=== PATIENT | female | born 1960 | race African-American/Black ===

== ENCOUNTER → 2019-09-25 15:39 | Outpatient (CLI) | payer OTHER, SELFPAY ==
--- NOTE | ~2019-09-25 | XR_ITS ---
XR_CERV2-3V_CR DATE: 09/25/2019 16:01 INDICATION: Neck pain TECHNIQUE: AP, open mouth, odontoid, lateral views COMPARISON: None FINDINGS: There is reversal of the cervical spine. C1 and C2 are normally aligned and the odontoid process is intact. No fracture or dislocation or loc ked facet. No prevertebral soft tissue swelling. There is moderate to moderately severe degenerative disc disease at C3-4 and C4-5. There is anterior fusion at C5-6. There is severe degenerative disc disease at C6-7. There is uncovertebral joint spurring at C3-4, C4-5, C5-6 and C6-7. IMPRESSION: Reversal of cervical curvature Anterior fusion at C5-6 Multi-level degenerative disc disease Reviewed, dictated and finalized at Location [facility]. Reviewed, dictated and finalized at location A.
== END ==
DX: M54.9 Dorsalgia, unspecified (principal); Z98.1 Arthrodesis status; M50.30 Other cervical disc degeneration, unspecified cervical region
CPT/HCPCS: 72040

== ENCOUNTER → 2020-01-25 08:01 | Outpatient (CLI) | payer OTHER, SELFPAY ==
--- NOTE | ~2020-01-25 | US_ITS ---
EXAMINATION: US abdomen complete DATE: 01/25/2020 09:45 INDICATION: Generalized abdominal pain and bloating TECHNIQUE: Multiple grayscale and Doppler ultrasound images of the abdomen were obtained. COMPARISON: CT, 12/08/2018 FINDINGS: The head and body of the pancreas are normal. The pancreatic tail is obscured by bowel gas. A 6 mm cyst is noted in the left hepatic lobe. The liver is otherwise normal with normal echogenicit y and echotexture. No surface nodularity. Normal hepatopetal flow in the main portal vein. The gallbl adder is normal with no abnormal wall thickening, pericholecystic fluid or stones. The normal common bile duct measures 4 mm. There was no sonographic Degroot sign. The visualized portions of the aorta a nd inferior vena cava are normal. The right kidney measures 9.3 x 3.7 x 4.3 cm. The left kidney measures 9.8 x 5.3 x 4.9 cm. The kidney s demonstrate normal parenchymal echogenicity. There is no hydronephrosis. The spleen is normal in ap pearance and measures 7.7 cm. IMPRESSION: 1. No sonographic correlate for the patient's symptoms. Reviewed, dictated and finalized at location A. GN LEAD
== END ==
DX: R10.9 Unspecified abdominal pain (principal)
CPT/HCPCS: 76700

== ENCOUNTER → 2020-09-10 13:26 | Outpatient (CLI) | payer OTHER, SELFPAY ==
--- NOTE | ~2020-09-10 | XR_ITS ---
EXAMINATION:XR cervical spine 4-5V DATE: 09/10/2020 13:54 INDICATION: Neck pain TECHNIQUE: AP, lateral, lateral swimmers and odontoid views of the cervical spine are provided. COMPARISON: 09/25/2019 FINDINGS: Alignment is normal. The odontoid is intact. No fracture is identified. There is anterior f usion at C5-6. The vertebral body heights are maintained. There is unchanged severe loss of intervert ebral disc space height at C3-4, C4-5, and C6-7. Small degenerative osteophytes project from the ante rior endplates of multiple vertebral bodies. There is severe multilevel facet and uncovertebral joint osteoarthritis. Prevertebral soft tissues are normal. IMPRESSION: 1. Severe cervical spondylosis without acute findings or significant interval change. Reviewed, dictated and finalized at location A. IMPRESSION: 1. Severe cervical spondylosis without acute findings or significant interval ildefonso sutherland
--- NOTE | ~2020-09-10 | XR_ITS ---
EXAMINATION: XR lumbar spine 2-3V DATE: 09/10/2020 13:54 INDICATION: Low back pain TECHNIQUE: Anteroposterior and lateral views of the lumbar spine, and cone-down lateral view of the l umbosacral junction were obtained. COMPARISON: None. FINDINGS: There are 25 degrees of thoracolumbar dextroscoliosis. No fracture is identified. There is mild loss of intervertebral disc space height throughout the lumbar spine. The vertebral body heights are maintained. Small degenerative osteophytes project from the anterior endplates of multiple verte bral bodies. There is moderate facet osteoarthritis of the lower lumbar spine. The bowel gas pattern is normal. IMPRESSION: 1. Mild lumbar spondylosis and thoracolumbar dextroscoliosis without acute findings. Reviewed, dictated and finalized at location A. IMPRESSION: 1. Mild lumbar spondylosis and thoracolumbar dextroscoliosis without acute find ings.
== END ==
PROVIDERS: Visit Provider Pain Medicine Interventional Pain Medicine
DX: M47.812 Spondylosis without myelopathy or radiculopathy, cervical region (principal); M47.813 Spondylosis without myelopathy or radiculopathy, cervicothoracic region; M47.814 Spondylosis without myelopathy or radiculopathy, thoracic region; M47.22 Other spondylosis with radiculopathy, cervical region; M47.23 Other spondylosis with radiculopathy, cervicothoracic region
CPT/HCPCS: 72050; 72100

== ENCOUNTER → 2021-12-09 15:27 | Outpatient (CLI) | payer OTHER, SELFPAY ==
--- NOTE | ~2021-12-09 | MM_ITS ---
EXAMINATION: MM scrn anel implant BI w dominique HISTORY: Screening mammogram TECHNIQUE: Craniocaudal and mediolateral oblique 3-D tomosynthesis images with implant displacement a nd synthetic 2-D images were generated. Craniocaudal and mediolateral oblique views of the breasts wi thout implant displacement were obtained using full field digital mammography. CAD analysis was submi tted and interpreted. COMPARISON: 01/14/2019, 11/29/2013, 10/24/2012 BREAST PARENCHYMAL COMPOSITION: The breasts are heterogeneously dense, which may obscure small masses . FINDINGS: There is stable focal asymmetry in the anterior right breast. There is no evidence of suspi cious mass, calcification, or architectural distortion to suggest malignancy in either breast. There has been no suspicious interval change. IMPRESSION: 1. No mammographic evidence of malignancy. 2. Recommend routine screening mammography in one year. BI-RADS Category 2: Benign finding(s). Reviewed, dictated and finalized at location A.
--- NOTE | ~2021-12-09 | DEXA_ITS ---
Bone Density Report Name: ARIS MARADIAGA Age: 61 Sex: Female Ethnicity: Black Date of : 1960 Indication: postmenopausal; screening for osteoporosis; Referring Provider: VANESSA ROYAL Study: Bone densitometry was performed. Exam Date: December 09, 2021 Accession number: [id number] Bone Density: Region BMD T-score Z-score Classification AP Spine (L1-L4) 1.354 2.8 3.5 Normal Femoral Neck (Left) 0.850 0.0 0.4 Normal Total Hip (Left) 1.009 0.5 0.7 Normal Femoral Neck (Right) 0.870 0.2 0.5 Normal Total Hip (Right) 1.024 0.7 0.8 Normal Total Hip Mean 1.017 0.6 0.8 Normal World Health Organization criteria for BMD impression classify patients as: Normal (T-score at or above -1.0), Osteopenia (T-score between -1.0 and -2.5), or Osteoporosis (T-score at or below -2.5). 10-year Fracture Risk: FRAX not reported because: All T-scores for Spine Total, Hip Total, Femoral Neck at or above -1.0 Clinical Information Provided by Patient: Patient maximum height was 62.0 Menopause Age: 50 No regular weight bearing exercise Drinks caffeinated beverages Onset of menses at age 13 Number of children 1 Impression: The patient has normal bone mass. Discussion: BONE DENSITY IS ABOVE THE MINIMUM DESIRABLE LEVEL AT ALL SKELETAL SITES TESTED. This patient?s bone mineral density is above the minimum desirable level (T-score -1.0 or better) at all sites measured. The patient should follow a healthful lifestyle (good nutrition with adequate calcium and vitamin D, and appropriate weight-bearing exercise). Follow-Up: Consider repeating this study in 5 years or sooner if there is some new clinical indication. Reported by: [facility] on 12/09/2021 4:06:00 PM. Reviewed, dictated and finalized at location A. [facility]
== END ==
PROVIDERS: Visit Provider Obstetrics & Gynecology
DX: Z12.31 Encounter for screening mammogram for malignant neoplasm of breast (principal); Z91.89 Other specified personal risk factors, not elsewhere classified
CPT/HCPCS: 77063; 77067; 77080

== ENCOUNTER 2023-02-14 07:46 | Outpatient (CLI) | payer OTHER, SELFPAY ==
--- NOTE | ~2023-02-14 | MR_ITS ---
MRI of the cervical spine Clinical History: Radiculopathy Technique: Axial T2-weighted and gradient images, and sagittal T1-weighted, T2-weighted, and STIR delio ges were acquired. Findings: There is mild reversal normal cervical lordosis. No acute fracture or subluxation seen. The re is fusion across the C5-C6 disc space. There is possible disc prosthesis at C4-C5 level versus sev ere degenerative disc narrowing. There is additional severe degenerative disc narrowing at C3-C4 and C6-C7. At C2-C3, there is no disc bulge or herniation. No central canal stenosis or cord compression. There is mild facet arthropathy without neural foraminal compromise. At C3-C4, there is mild disc osteophyte complex with minimal canal stenosis but no graham cord valeria charbel. There is left neural foraminal narrowing with left facet arthropathy. Right neural foramen is p reserved. At C4-C5, there is disc osteophyte complex with canal stenosis and mild cord compression. There is bi lateral neural foraminal narrowing with bilateral mild facet arthropathy. At C5-C6, there is left paracentral osteophyte, which mildly compresses the ventral, left side of the spinal cord. There is probable bilateral neural foraminal narrowing, mild, right worse than left. At C6-C7, there is advanced degenerative disc narrowing. There is mild disc ossify complex with mild canal stenosis but no graham cord compression. There is bilateral neural foraminal narrowing, left wor se than right. No abnormal signal seen in the spinal cord. Paravertebral soft tissues are unremarkable. Impression: Moderate to advanced degenerative spondylosis, as detailed above. Fusion across the C5-C6 disc space. Reviewed, dictated and finalized at [facility]. [employer] Impression: Moderate to advanced degenerative spondylosis, as detailed above. Fusion across the C5-C6 disc space.
== END 2023-02-14 07:47 ==
LOC: MICIMG 07:47
DX: M47.22 Other spondylosis with radiculopathy, cervical region (principal)
CPT/HCPCS: 72141

== ENCOUNTER 2023-05-30 14:03 | Outpatient (CLI) | payer OTHER, BC, SELFPAY ==
--- NOTE | ~2023-05-30 | MM_ITS ---
EXAMINATION: MM scrn anel implant BI w dominique HISTORY: Screening TECHNIQUE: Craniocaudal and mediolateral oblique 3-D tomosynthesis images with implant displacement a nd synthetic 2-D images were generated. Craniocaudal and mediolateral oblique views of the breasts wi thout implant displacement were obtained using full field digital mammography. CAD analysis was submi tted and interpreted. COMPARISON: Comparison to multiple prior studies sequentially, with oldest reviewed study dated 03/2018. BREAST PARENCHYMAL COMPOSITION: Not dense: There are scattered areas of fibroglandular density. FINDINGS: There is no evidence of suspicious mass, calcification, or architectural distortion to sugg est malignancy in either breast. There has been no suspicious interval change. IMPRESSION: 1. No mammographic evidence of malignancy. 2. Recommend routine screening mammography in one year. BI-RADS Category 1: Negative Reviewed, dictated and finalized at location B.
== END 2023-05-30 14:04 ==
PROVIDERS: Visit Provider Obstetrics & Gynecology
DX: Z12.31 Encounter for screening mammogram for malignant neoplasm of breast (principal)
CPT/HCPCS: 77063; 77067

== ENCOUNTER 2024-03-04 15:31 | Outpatient (CLI) | payer OTHER, BC, SELFPAY ==
--- NOTE | ~2024-03-04 | XR_ITS ---
EXAMINATION: XR abdomen/kub 1V DATE: 03/04/2024 15:59 INDICATION: Left lower quadrant abdominal pain post colonoscopy one week prior TECHNIQUE: A supine view of the abdomen on 2 radiographs was obtained. COMPARISON: CT abdomen pelvis dated 12/08/2018 FINDINGS: Moderate amount of stool in the ascending and transverse colon. No dilated loops of gas-filled bowel to suggest obstruction. No pneumatosis or evident free intraperitoneal gas. Lung bases are clear. Hea rt size is normal. Mild thoracolumbar dextrorotoscoliosis with moderate to severe spondylosis. IMPRESSION: 1. Unremarkable bowel gas pattern. Reviewed, dictated and finalized at location A. [employer] STAFF SPECIALIST SECURITY
== END 2024-03-04 15:32 | disposition home or self-care (01) ==
DX: R10.32 Left lower quadrant pain (principal)
CPT/HCPCS: 74018

== ENCOUNTER 2024-04-04 09:24 | Outpatient (CLI) | payer OTHER, BC, SELFPAY ==
--- NOTE | ~2024-04-04 | MMUS_ITS ---
EXAMINATION: MM diag anel implant BI w dominique, US breast RT limited HISTORY: Palpable right breast lump TECHNIQUE: Additional 3-D tomosynthesis images of the breasts were performed and synthetic 2-D images were generated. CAD analysis was submitted and interpreted. High resolution Limited right breast ult rasound was performed. COMPARISON: None Comparison to multiple prior studies sequentially, with oldest reviewed study dated 01/14/2019. BREAST PARENCHYMAL COMPOSITION: Not Dense: The breasts are almost entirely fatty. FINDINGS: MAMMOGRAPHIC FINDINGS: There are bilateral breast implants which are somewhat glandular. There are no suspicious masses, karen cifications or architectural distortion in either breast to suggest malignancy. ULTRASOUND: Limited right breast ultrasound: Normal heterogeneous echotexture without focal mass. IMPRESSION: 1. No evidence for malignancy in either breast. 2. Routine yearly screening mammogram and regular clinical breast examination are recommended. BI-RADS Category 1: Negative Reviewed, dictated and finalized at location B. LY DINNER SERVICE SPECIALIST IMPRESSION: 1. No evidence for malignancy in either breast. 2. Routine yearly screening mammogram and regular clinical breast examination a re recommended. BI-RADS Category 1: Negative
== END 2024-04-04 09:25 | disposition home or self-care (01) ==
LOC: MICIMG 09:26
PROVIDERS: Visit Provider Nurse Practitioner Obstetrics & Gynecology
DX: N63.11 Unspecified lump in the right breast, upper outer quadrant (principal)
CPT/HCPCS: 76642; 77062; 77066; G0279

== ENCOUNTER 2024-06-21 12:11 | Outpatient (CLI) | payer OTHER, BC, SELFPAY ==
--- OUTSIDE RECORDS SUMMARY | 2024-06-21 12:15 | XMS_ITS | Clinical Summary ---
Author Organization [facility] Address [address] [place] [address] Phone Care Team Providers Care Risk Control Analyst Name Role Phone Kamron Silva MD Primary Care Provider [phone] Allergies No known active allergies Medications acetaminophen (TYLENOL) 500 mg tablet Take 500 mg by mouth every 6 hours as needed for Pain. Active CHLORTHALIDONE ORALIndications:m ild hypertension Take 12.5 mg by mouth daily. Active ASCORBIC ACID, VITAMIN C, ORAL Take by mouth. Active multivitamin (DAILY-DAR) tablet Take 1 Tablet by mouth daily. Active HYDROcodone-aceta minophen (NORCO) 5-325 mg tabletIndications :Radiculopathy, cervical,Cervical stenosis of spinal canal,Acute post-operative pain Take 1 Tablet by mouth every 4 hours as needed for severe pain. Max Daily Amount: 6 Tablets 30 Tablet 07/01/2021 3:56 PM CDT 2 Active meloxicam (MOBIC) 15 mg tablet Take 1 Tablet (15 mg) by mouth daily. Take for a total of 1 month after your neck surgery 30 Tablet 07/01/2021 3:56 PM CDT 2 Active tiZANidine (ZANAFLEX) 4 mg Tablet Take 1 Tablet (4 mg) by mouth every 8 hours as needed for Spasm or neck discomfort. 30 Tablet 07/01/2021 3:56 PM CDT 2 Active methylPREDNISolon e (MEDROL DOSPACK) 4 mg Tablets, Dose Pack 06/14/202 2 Active Active Problems No known active problems Family History Medical History Relation Name Comments Hypertension Brother Hypertension Father Brain Aneurysm Mother Hypertension Mother Hypertension Sister Relation Name Status Comments Brother Father Mother Sister Social History Tobacco Use Types Packs/Day Years Used Date Smoking Tobacco: Former Cigarettes Q uit: 12/2020 Smokeless Tobacco: Never Alcohol Use Standard Drinks/Week Comments Yes 0 (1 standard drink = 0.6 oz pur e alcohol) occassionally Comments No Sex and Gender Information Value Date Recorded Sex Assigned at Not on file 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 Gender Identity Not on file Sexual Orientation Not on file 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 Not on file Not on file Not on file Last Filed Vital Signs Vital Sign Reading Time Taken Comments Blood Pressure 158/92 07/28/2021 11:44 AM CDT Pulse 80 07/28/2021 11:44 AM CDT Temperature 36.6 C (97.9 F) 07/28/2021 11:44 AM CDT Respiratory Rate 18 07/01/2021 11:32 AM CDT Oxygen Saturation 95% 07/01/2021 12:33 PM CDT Inhaled Oxygen Concentration - - Weight 65.3 kg (144 lb) 07/28/2021 11:44 AM CDT Height 157.5 cm (5' 2 ) 07/28/2021 11:44 AM CDT Body Mass Index 26.34 07/28/2021 11:44 AM CDT Plan of Treatment Health Maintenance Due Date Last Done Comments DTAP/TDAP/TD VACCINES (1 - Tdap) 1979 HPV/Cotest (21-29) 1981 CERVICAL CANCER SCREENING 1990 HPV/Cotest (30-65) 1990 PAP SMEAR 1990 COLORECTAL SCREENING 2005 Colorectal Cancer Screening 2005 FIT-DNA Q 3 years 2005 FIT/FOBT Q 1 year 2005 Flex Sig/CT Colonography Q 5 years 2005 ZOSTER VACCINE (1 of 2) 2010 BREAST CANCER SCREENING 06/05/2016 06/06/2015, 06/05 INFLUENZA VACCINE (#1) 2023 COVID-19 Vaccine (2023- season) 2023 02/22/2021, 03/24/2020, 03/03/2020 RSV VACCINE (60+ or ) (1 - 1-dose 75+ series) 2035 Medical Devices Implanted Type Area Cnc Lathe Machinist Device Identifier Shelf Expiration Date Model / Serial / Lot Nuvasive Simplify Disc Implanted:Qty : 1 on 07/01/2021 by Lauro Carrasco MD at [facility] Cage N/A: Spine Cervical Anterior [employer] [id number] 03/02/2025 [facility] / / [id number] Description:Requisition # [id number]. Breast Insurance [facility] OPEN ACCESS HMO RX [employer] RX Member Subscriber Plan / Payer (Ef fective for All Dates) Name:Annita Velazquez Relation to Subscriber:Self Name:Annita Velazquez Subscriber ID:Not on file Payer ID:Not on file Group ID:[id number] Type:RX Commercial Address: [address] [employer] Advance Directives For more information, please contact: [phone] Documents on File Type Date Recorded Patient Chemical Mixer Expl anation Advance Directive Living Will 06/15/2021 11:18 AM Advance Directive Living Will * Full Code (Latest Code Status on File) Date Activated Date Inactivated Comments 07/01/2021 5:39 AM 07/01/2021 2:41 PM Care Teams Risk Control Analyst Relationship Specialty [place] [id number] [id number] PCP - General Internal Medicine 05/13/21
--- OUTSIDE RECORDS SUMMARY | 2024-06-21 12:15 | XMS_ITS | Clinical Summary ---
Author Organization [facility] Address [address] [place] [address] Care Team Providers Care Expanded Function Dental Assistant Name Role Phone Kamron Smith MD Primary Care Provider [phone] Source Comments [facility],non-owned Affiliates and Associated Physician Practices is amultiple site organization consisting of ambulatory clinics and hospital sitesin [place], [place], [place] and [place]. This disclosure is being madepursuant to the Care Everywhere program and may not contain all information available regarding this patient. Last updated 17.[facility] Allergies No known active allergies Medications * Be aware that medications may not be up to date on this document. Alwaysverify current medications with the patient. hydrochlorothia zide (HYDRODIURIL) 12.5 MG TABS Take by mouth once daily. Active ibuprofen (MOTRIN) 800 MG tablet Take 1 Tab by mouth every 8 hours as needed for Pain 100 Tab 7 Active metroNIDAZOLE vaginal (METROGEL VAGINAL) 0.75 % vaginal gelIndications: Bacterial Vaginosis Insert 1 Applicator into the vagina as needed (vaginal discharge) Reasons: Vaginosis caused by Bacteria 1 Tube 3 7 Active metoprolol succinate XL 24hr (TOPROL XL) 50 MG tablet Take 1 (one) tablet by mouth once daily 3 7 Active NA-K-MG sulfates (SUPREP BOWEL PREP KIT) 17.5-3.13-1.6 GM/177ML solutionIndicat ions:Special screening for malignant neoplasms, colon Take 354 mL by mouth once daily 1 kit Active Additional Information Patient not taking.Reason: Other (no longer needed for colonoscopy), Informant: Patient, Reported on 02/26/2024 chlorthalidone (Hygroton) 25 MG tablet Take 1 (one) tablet by mouth once daily Active Active Problems Problem Noted Date Diagnosed Date Urinary frequency 11/04/2016 Microscopic hematuria 11/04/2016 Family History Medical History Relation Name Comments Hypertension Brother 2 Diabetes Father Hypertension Father Arthritis - Rheumatoid Maternal Grandmother CAD (Coronary Artery Disease) Mother Heart Failure Mother Hypertension Mother Hypertension Sister 2 Relation Name Status Comments Brother 1 Alive Brother 2 Father Maternal Grandmother Mother Alive Sister 1 Alive Sister 2 Social History Tobacco Use Types Packs/Day Years Used Date Smoking Tobacco: Some Days Cigarettes Smokeless Tobacco: Never Tobacco Cessation:Ready to Q uit: Not Asked; Counseling Given: Not Answered Alcohol Use Standard Drinks/Week Comments Yes 2 (1 standard drink = 0.6 oz pur e alcohol) Comments No Sex and Gender Information Value Date Recorded Sex Assigned at Not on file Legal Sex Female 5:11 AM MEDIA CONSULTANT Gender Identity Not on file Sexual Orientation Not on file 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 Not on file Not on file Last Filed Vital Signs Vital Sign Reading Time Taken Comments Blood Pressure 137/87 02/26/2024 9:25 AM MEDIA CONSULTANT Pulse 72 02/26/2024 9:25 AM MEDIA CONSULTANT Temperature 36.6 C (97.8 F) 02/26/2024 9:05 AM MEDIA CONSULTANT Respiratory Rate 18 02/26/2024 9:25 AM MEDIA CONSULTANT Oxygen Saturation 98% 02/26/2024 9:25 AM MEDIA CONSULTANT Inhaled Oxygen Concentration - - Weight 67.1 kg (148 lb) 02/26/2024 8:02 AM MEDIA CONSULTANT Height 157.5 cm (5' 2 ) 02/26/2024 8:02 AM MEDIA CONSULTANT Body Mass Index 27.07 02/26/2024 8:02 AM MEDIA CONSULTANT Plan of Treatment Health Maintenance Due Date Last Done Comments COLOGUARD (AGES 45-75) - COLON CA SCREENING 1960 CT COLONOGRAPHY - COLON CA SCREENING 1960 FIT - COLON CA SCREENING 1960 FLEX SIG - COLON CA SCREENING 1960 HIV SCREENING 1975 HEPATITIS C SCREENING 03/27/1978 DTAP/TDAP/TD VACCINES (1 - Tdap) 1979 PNEUMOCOCCAL VACCINE 50+ (1 of 2 - PCV) 1979 ZOSTER VACCINE (1 of 2) 2010 MAMMOGRAM 03/11/2017 03/11/2015 PAP SMEAR 03/11/2018 03/11/2015 COVID-19 VACCINE (1 - 2023- season) 2023 DEPRESSION SCREENING 02/14/2024 INFLUENZA VACCINE (Season Ended) 2024 LIPID TESTING 01/29/2029 01/30/2024, 11/29/2022 COLON MONITORING 02/25/2034 02/26/2024, , 06/29/2020, Additional history exists COLONOSCOPY - COLON CA SCREENING 02/25/2034 02/26/2024, 02/26/2024, 06/29/2020, Additional history exists Colorectal Cancer Screening 02/25/2034 Respiratory Syncytial Virus (RSV) Vaccine Pt: or over 60 yrs (1 - 1-dose 75+ series) 2035 HEPATITIS B VACCINE Aged Out No longe r eligible based on patient's age to complete this topic HIB VACCINE Aged Out No longer eligi ble based on patient's age to complete this topic HPV VACCINE Aged Out No longer eligi ble based on patient's age to complete this topic MENINGOCOCCAL (Group B) VACCINE SHARED DECISION-MAKING Aged Out No longer eligible based on patient's age to complete this topic MENINGOCOCCAL GROUPS A/C/Y/W VACCINE Aged Out No longer eligible based on patient's age to complete this topic Procedures Procedure Name Priority Date/Time Associated Diagnosis Comments ENDOSCOPY, COLON, SCREENING Routine 02/26/2024 7:50 AM MEDIA CONSULTANT History of colon polyps from Last 3 Months or Most Recently Relevant to Health Maintenance Results * Screening Colonoscopy (02/26/2024 7:50 AM MEDIA CONSULTANT) Report Endoscopy POC _ Patient Name: Annita Velazquez Procedure Date: 02/26/2024 7:50 AM Date of : 1960 Admit Type: Outpatient Age: 63 Gender: Female Attending MD: Neo Mayes MD, [id number] _ Procedure: Colonoscopy Indications: High risk colon cancer surveillance: Personal history of colonic polyps, Last colonoscopy: 2020 Providers: Neo Mayes MD (Doctor) Referring MD: Kamron Smith MD (Referring MD) Medicines: Monitored Anesthesia Care Complications: No immediate complications. _ Estimated Blood Loss: Estimated blood loss: none. Procedure: Pre-Anesthesia Assessment: - Prior to the procedure, a History and Physical was performed, and patient medications and allergies were reviewed. The patient is competent. The risks and benefits of the procedure and the sedation options and risks were discussed with the patient. All questions were answered and informed consent was obtained. Patient identification and proposed procedure were verified by the physician, the nurse and the antique finisher in the procedure room. Mental Status Examination: alert and oriented. Airway Examination: normal oropharyngeal airway and neck mobility. Respiratory Examination: clear to auscultation. CV Examination: normal. Prophylactic Antibiotics: The patient does not require prophylactic antibiotics. Prior Anticoagulants: The patient has taken no anticoagulant or antiplatelet agents. ASA Grade Assessment: II - A patient with mild systemic disease. After reviewing the risks and benefits, the patient was deemed in satisfactory condition to undergo the procedure. The anesthesia plan was to use monitored anesthesia care (MAC). Immediately prior to administration of medications, the patient was re-assessed for adequacy to receive sedatives. The heart rate, respiratory rate, oxygen saturations, blood pressure, adequacy of pulmonary ventilation, and response to care were monitored throughout the procedure. The physical status of the patient was re-assessed after the procedure. After I obtained informed consent, the scope was passed under direct vision. Throughout the procedure, the patient's blood pressure, pulse, and oxygen saturations were monitored continuously. The Colonoscope was introduced through the anus and advanced to the cecum, identified by appendiceal orifice and ileocecal valve. The colonoscopy was performed without difficulty. The patient tolerated the procedure well. The quality of the bowel preparation was excellent. The ileocecal valve, appendiceal orifice, and rectum were photographed. Findings: The digital rectal exam was normal. Pertinent negatives include no palpable rectal lesions. The rectum, sigmoid colon, descending colon, transverse colon, ascending colon, cecum, appendiceal orifice and ileocecal valve appeared normal. Small internal hemorrhoids noted in retroflexion. _ Impression: - The rectum, sigmoid colon, descending colon, transverse colon, ascending colon, cecum, ileocecal valve and appendiceal orifice are normal. - Small internal hemorrhoids - No specimens collected. Recommendation: - Repeat colonoscopy in 5 years for surveillance. - Return to primary care physician as previously scheduled. - Resume previous diet. - Continue present medications. - Patient has a contact number available for emergencies. The signs and symptoms of potential delayed complications were discussed with the patient. Return to normal activities tomorrow. Written discharge instructions were provided to the patient. Procedure Code(s): --- Professional --- 75829, Colonoscopy, flexible; diagnostic, including collection of specimen(s) by brushing or washing, when performed (separate procedure) --- Technical --- 19376, Colonoscopy, flexible; diagnostic, including collection of specimen(s) by brushing or washing, when performed (separate procedure) Diagnosis Code(s): --- Professional --- Z86.010, Personal history of colonic polyps --- Technical --- Z86.010, Personal history of colonic polyps CPT copyright 2020 [employer]. All rights reserved. The codes documented in this report are preliminary and upon photographic hand developer review may be revised to meet current compliance requirements. Dr. Neo Mayes MD Neo Mayes MD 02/26/2024 9:24:25 AM This report has been signed electronically. Number of Addenda: 0 Note Initiated On: 02/26/2024 7:50 AM [facility] ENDOSCOPY 02/26/2024 7:50 AM MEDIA CONSULTANT Neo Mayes MD GI PROCEDURE ORDERABLES Juan Manuel monserrat Result - Final [facility] [place] [address] from Last 3 Months or Most Recently Relevant to Health Maintenance Insurance [employer] Care Teams Expanded Function Dental Assistant Relationship Specialty [place] [address] [address] PCP - General 07/04/11
--- OUTSIDE RECORDS SUMMARY | 2024-06-21 12:15 | XMS_ITS | Encounter Summary ---
Author Organization [facility] Address [address] [place] [place] [address] Care Team Providers Care Stuntman Name Role Phone Kamron Silva MD Primary Care Provider Encounter Details Date Type Department Care Team (Late st Contact Info) Description 07/11/2012 Therapy Visit EXTERNAL [facility] DEPT Unknown, Provider Social History Tobacco Use Types Packs/Day Years Used Date Smoking Tobacco: Every Day Alcohol Use Standard Drinks/Week Comments Yes 0 (1 standard drink = 0.6 oz pure alcohol) Wine - 2 Glasses per week for 8-10 years Comments Unknown Sex and Gender Information Value Date Recorded Sex Assigned at Not on file Legal Sex Female 5:11 AM PERSONALIZED LIVING MANAGER Gender Identity Not on file Sexual Orientation Not on file 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
--- OUTSIDE RECORDS SUMMARY | 2024-06-21 12:15 | XMS_ITS | Encounter Summary ---
Author Organization [facility] Address [address] [place] [address] Care Team Providers Care Metal Stamper Name Role Phone Kamron Silva MD Primary Care Provider Encounter Details Date Type Department Care Team (Late st Contact Info) Description 05/11/2012 [facility] Outpatient Visit [facility] [address] [facility] [address] [place] [address] [place] [address] [facility] [address] [place], [place] [id number] Social History Tobacco Use Types Packs/Day Years Used Date Smoking Tobacco: Every Day Alcohol Use Standard Drinks/Week Comments Yes 0 (1 standard drink = 0.6 oz pure alcohol) Wine - 2 Glasses per week for 8-10 years Comments Unknown Sex and Gender Information Value Date Recorded Sex Assigned at Not on file Legal Sex Female 5: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
--- OUTSIDE RECORDS SUMMARY | 2024-06-21 12:15 | XMS_ITS | Encounter Summary ---
Author Organization [facility] Address [address] [place] [address] Care Team Providers Care Middle School Football Coach Name Role Phone Kamron Silva MD Primary Care Provider Encounter Details Date Type Department Care Team (Latest Contact Info) Description 03/08/1998 Outpatient Historical [facility] Luan Vanegas MD Other chest pain (Primary Dx) Social History Tobacco Use Types Packs/Day Years Used Date Smoking Tobacco: Never Assessed Comments Unknown Sex and Gender Information Value Date Recorded Sex Assigned at Not on file Legal Sex Female 2:40 AM FAN INSTALLER Gender Identity Not on file Sexual Orientation Not on file documented as of this encounter Plan of Treatment Not on file documented as of this encounter Visit Diagnoses Diagnosis Other chest pain- Primary documented in this encounter Care Teams Middle [employer] Football Coach Relationship Specialty [place] [address] [id number] PCP - General Internal Medicine 05/13/21 documented as of this encounter
[2024-06-21 14:20] LABS: Thyroid Stimulating Hormone Reflex 0.506 uIU/mL (0.465-4.68)
== END 2024-06-21 12:12 | disposition home or self-care (01) ==
LOC: ANHLAB 12:13
PROVIDERS: Visit Provider Obstetrics & Gynecology
DX: E04.9 Nontoxic goiter, unspecified (principal)
CPT/HCPCS: 36415; 84443

== ENCOUNTER 2024-06-28 11:57 | Outpatient (CLI) | payer OTHER, BC, SELFPAY ==
--- NOTE | ~2024-06-28 | US_ITS ---
Thyroid ultrasound. Clinical History: Nontoxic goiter Findings: Real-time sonography of the thyroid gland was performed. The right lobe measures 5.9 x 1.8 x 2.0 cm. The left lobe measures 4.3 x 2.1 x 2.1 cm. The isthmus is 3 mm in AP diameter. There is a 1.5 x 0.9 x 1.0 cm heterogeneous, mixed echogenicity, possibly spongiform nodule at the ri ght upper pole. There is an additional 7 mm mixed echogenicity, possibly spongiform nodule at the rig ht mid to upper pole anteriorly. There is a 1.7 x 1.0 x 1.2 cm mixed echogenicity, possibly spongiform nodule at the left upper pole. There is a 5 mm spongiform nodule at the left lower pole. Impression: Bilateral thyroid nodules, as above, most likely multinodular goiter. Annual follow-up advised.. Reviewed, dictated and finalized at location . Impression: Bilateral thyroid nodules, as above, most likely multinodular goiter. Annual fo llow-up advised..
== END 2024-06-28 11:58 | disposition home or self-care (01) ==
LOC: MICIMG 06-29 11:57
PROVIDERS: PCP Obstetrics & Gynecology; Visit Provider Obstetrics & Gynecology
DX: E04.2 Nontoxic multinodular goiter (principal)
CPT/HCPCS: 76536

== ENCOUNTER 2024-10-03 08:15 | Outpatient (RCR) | payer OTHER, BC, SELFPAY ==
--- NOTE | 2024-07-18 11:22 | OPREHPOC ---
Outpatient Therapy Plan of Care This is a Multidisciplinary Plan of Care that may contain components documented by all disciplines (PT, OT, and ST.) PT Problem 1 PT Problem #1 Knowledge Deficit PT Goal 1 Goal / Goal Update 1. Patient will perform independent HEP Target Visit 2 PT Problem 2 PT Problem #2 Pain PT Goal 1 Goal / Goal Update 1. Patient will report pain overall no higher than 3/10 with any activities 2. No pain after pelvic contraction Target Visit 5 PT Problem 3 PT Problem #3 Impaired Flexibility PT Goal 1 Goal / Goal Update 1. Patient will be able to fully relax after contraction Target Visit 5 PT Problem 4 PT Problem #4 Impaired Functional ADLs PT Goal 1 Goal / Goal Update 1. Patient will fully tolerate pelvic exam, intercourse, etc. Target Visit 5
--- NOTE | 2024-07-18 11:23 | PTOPEVAL1 ---
Assessment and note entered by Leilani Collazo DPT Evaluation Information Assessment Status Evaluation Diagnosis n94.10 ICD-10 Condition Codes (PT) Weakness R53.1,Pelvic and perineal pain R10.2 Subjective Information Pt has order for pelvic pain. Reports she had an excruciating, 10/10 abdominal pain that started about 9 months ago. Also reports pain with intercourse and feels that something is in the way . Pain is somewhat positional. Did have pain with last pelvic exam. Other times pain occurs randomly . Unsure why pain started originally but has gradually been worsening. Voids 4-5 times a day, usually none at night. Incontinence very rarely, less than 1 time a month. Denies pain with urination. Can hold urine for hours when at work. BM normally one time a day, sometimes multiple times a day. Denies pain. Pt has been 2 times, 1 vaginal delivery. No complications. No other VOCATIONAL ADVISER history. Is using vaginal estrogen inconsistently. No other b/b issues. Patient goal: fix the pain Return to Dr. Thacker not scheduled. Reported Pain Level Pain Score 0: Self Report Assessment PT Clinical Summary The patient is presenting to skilled therapy with a history of progressing pelvic pain. She demonstrates increased pelvic floor muscle tone and difficulty relaxing after contraction, decreased hip and abdominal strength, and abdominal pain with palpation. She also demonstrates mild anterior wall bulge. These impairments are contributing to her significant pain and she will highly benefit from therapy to reduce pain and return to full function. Plan of Care Interventions Electrical Stimulation,Hot Pack/Cold Pack,Manual Therapy,Neuro Re-education,Patient/Caregiver Education,Therapeutic Activities,Therapeutic Exercise PT Services Indicated Yes Treatment Frequency and 1 time a week for 5 visits Duration These treatments will address the objective and functional deficits as defined above. The patient will be advanced safely and appropriately in order for the patient to progress towards his/her prior level of function. Additional exercises will be introduced and as well as a comprehensive home exercise program upon discharge, if needed, ?to ensure carryover of functional gains achieved in the clinic. This treatment plan has been reviewed and agreement upon by the patient.
--- NOTE | 2024-08-08 10:01 | PCPTNOTE ---
Patient called to cancel appointment 08/08/24 due to work conflict.
--- NOTE | 2024-09-17 08:58 | OPREHPOC ---
Outpatient Therapy Plan of Care This is a Multidisciplinary Plan of Care that may contain components documented by all disciplines (PT, OT, and ST.) PT Problem 1 PT Problem #1 Knowledge Deficit PT Goal 1 Goal / Goal Update 1. Patient will perform independent HEP Target Visit 2 Progress Met PT Problem 2 PT Problem #2 Pain PT Goal 1 Goal / Goal Update 1. Patient will report pain overall no higher than 3/10 with any activities 2. No pain after pelvic contraction Target Visit 5 Progress Met PT Problem 3 PT Problem #3 Impaired Flexibility PT Goal 1 Goal / Goal Update 1. Patient will be able to fully relax after contraction Target Visit 5 Progress Met PT Problem 4 PT Problem #4 Impaired Functional ADLs PT Goal 1 Goal / Goal Update 1. Patient will fully tolerate pelvic exam, intercourse, etc. update 09/17/24 1. pain reported still with intercourse, exam, and increased activity Target Visit 8 Progress Partially Met
--- NOTE | 2024-09-17 08:58 | PTOPPROG ---
Assessment and note entered by Leilani Collazo DPT Evaluation Information Assessment Status Progress Diagnosis n94.10 ICD-10 Condition Codes (PT) Weakness R53.1,Pelvic and perineal pain R10.2 Subjective Information Highest pain recently 2.5-3/10. Has been activity dependent and has been trying to exercise more. Lowest pain 0/10. Overall feels significant improvements with therapy and HEP relieves pain. Voiding 6 times a day, and 0-1 at night. Denies recent incontinence, pain with intercourse is now minimal. Assessment PT Clinical Summary The patient has made good progress in therapy and reports greatly decreased pain overall. She demonstrates improved hip and abdominal strength and improved pelvic floor muscle tone. She also reports improvements in frequency of urination throughout the work day. Due to her progress but continued pain with activity and on exam, she will benefit from continued therapy to return to full function. Plan of Care Interventions Electrical Stimulation,Hot Pack/Cold Pack,Manual Therapy,Neuro Re-education,Patient/Caregiver Education,Therapeutic Activities,Therapeutic Exercise PT Services Indicated Yes Treatment Frequency and 1 visit every other week x 3 visits Duration These treatments will address the objective and functional deficits as defined above. The patient will be advanced safely and appropriately in order for the patient to progress towards his/her prior level of function. Additional exercises will be introduced and as well as a comprehensive home exercise program upon discharge, if needed, ?to ensure carryover of functional gains achieved in the clinic. This treatment plan has been reviewed and agreement upon by the patient.
== END 2024-10-16 23:59 | disposition home or self-care (01) ==
LOC: ANHGOSHPT 08:15
PROVIDERS: PCP Obstetrics & Gynecology; Visit Provider Obstetrics & Gynecology
DX: R10.2 Pelvic and perineal pain (principal); N94.10 Unspecified dyspareunia
CPT/HCPCS: 97110; 97140; 97161; 97530

== ENCOUNTER 2024-11-01 15:45 | Outpatient (RCR) | payer OTHER, BC, SELFPAY ==
--- NOTE | 2024-11-01 16:08 | OPREHPOC ---
Outpatient Therapy Plan of Care This is a Multidisciplinary Plan of Care that may contain components documented by all disciplines (PT, OT, and ST.) PT Problem 1 PT Problem #1 Knowledge Deficit PT Goal 1 Goal / Goal Update 1. Patient will perform independent HEP Target Visit 2 Progress Met PT Problem 2 PT Problem #2 Pain PT Goal 1 Goal / Goal Update 1. Patient will report pain overall no higher than 3/10 with any activities 2. No pain after pelvic contraction Target Visit 5 Progress Met PT Problem 3 PT Problem #3 Impaired Flexibility PT Goal 1 Goal / Goal Update 1. Patient will be able to fully relax after contraction Target Visit 5 Progress Met PT Problem 4 PT Problem #4 Impaired Functional ADLs PT Goal 1 Goal / Goal Update 1. Patient will fully tolerate pelvic exam, intercourse, etc. update 09/17/24 1. pain reported still with intercourse, exam, and increased activity update 11/01/24 1. not reassessed due to patient report Target Visit 8 Progress Partially Met
--- NOTE | 2024-11-01 16:08 | PTOPDC ---
Assessment and note entered by Leilani Collazo DPT Evaluation Information Assessment Status Discharge Diagnosis n94.10 ICD-10 Condition Codes (PT) Weakness R53.1,Pelvic and perineal pain R10.2 Subjective Information Highest pain recently 4/10 and lowest 0/10. Is able to do more exercise at this point and when she does have pain she does HEP which relieves it. Voiding 5-6 times a day, maybe one time at night. Reported Pain Level Pain Score 0: Self Report Assessment PT Clinical Summary The patient reports overall she is feeling great and ready for discharge at this time. She reports significantly decreased pain overall and is able to manage it with HEP when it does happen. She also reports normalized urinary frequency. She has been educated to continue HEP and follow up with MD and/or PT as needed. Plan of Care PT Services Indicated No
== END 2024-11-04 07:44 | disposition home or self-care (01) ==
LOC: ANHGOSHPT 15:45
PROVIDERS: PCP Obstetrics & Gynecology; Visit Provider Obstetrics & Gynecology
DX: R10.2 Pelvic and perineal pain (principal); N94.10 Unspecified dyspareunia
CPT/HCPCS: 97110; 97140; 97530

== ENCOUNTER 2024-11-08 16:05 | Outpatient (CLI) | payer OTHER, BC, SELFPAY ==
--- NOTE | ~2024-11-08 | XR_ITS ---
[id number] 11/08/2024 16:27 Indication: Spondylosis Procedure: 3 views cervical spine Comparison: 09/10/2020 Findings: There is disc narrowing and endplate degenerative change at C3-4. Interval placement of prosthetic disc device at C4-5. There is fusion at C5-6. There is moderate degenerative change at C6-7. There is an old spinous process fracture at C7. No prevertebral soft tissue swelling. There is multilevel uncinate and facet hypertrophy. No acute fracture or traumatic malalignment. Impression: 1: No acute abnormality of the cervical spine. 2: Moderate cervical spondylosis with fusion at C5-6 and disc replacement at C4-5. Reviewed, dictated and finalized at location O. Impression: 1: No acute abnormality of the cervical spine. 2: Moderate cervical spondylosis with fusion at C5-6 and disc replacement at C4 -5.
== END 2024-11-08 16:06 | disposition home or self-care (01) ==
DX: M47.812 Spondylosis without myelopathy or radiculopathy, cervical region (principal)
CPT/HCPCS: 72040